=== PATIENT | male | born 1985 | race African-American/Black ===

== ENCOUNTER 2019-10-20 05:56 | Inpatient (IN) ==
[2019-10-20] MEDS ORDERED: diphenhydrAMINE 50 MG/1 ML VIAL IV STA (06:29)
[2019-10-20] MEDS ORDERED: HALOPERIDOL 5 MG/ML AMP IV STA (06:29)
[2019-10-20 07:04] LABS: Basophils # 0.1 10*3/uL (0.0-0.2); Eosinophils # 0.1 10*3/uL (0.0-0.87); Eosinophils % 1.4 % (0.00-10.9); Hematocrit 41.1 VOL% (42.0-52.0); Immature Granulocytes % 0.2 %; Immature Granulocytes Absolute 0.01 #; Lymphocytes # 2.1 10*3/uL (1.4-4.0); Lymphocytes % 44.1 % (21.2-54.2); Mean Corpuscular HGB Conc 31.6 GM/DL (32-36); Mean Corpuscular Volume 84.6 FL (87-102); Mean Platelet Volume 10.3 FL (9.6-12.0); Neutrophils % 48.3 % (38.7-73.9); Platelet Count 314 T/CUMM (130-400); Red Blood Count 4.86 MC/CUMM (3.8-5.5); Red Cell Distribution Width 15.3 % (9.3-17.3); White Blood Count 4.8 T/CUMM (4-12)
[2019-10-20 07:18] LABS: Barbiturates Screen,Urine Negative (Negative); Benzodiazepines Screen,Urine Negative (Negative); Cannabinoid Screen,Urine Positive (Negative); Opiate Screen,Urine Negative (Negative); Phencyclidine Screen,Urine Negative (Negative)
[2019-10-20 07:19] LABS: Alanine Aminotransferase 34 U/L (16-61); Albumin 3.7 G/DL (3.4-5.0); Alkaline Phosphatase 79 U/L (45-117); Aspartate Amino Transferase 25 U/L (0-37); Bilirubin,Total < 0.39 MG/DL (0.2-1.0); Blood Urea Nitrogen 9 MG/DL (7-18); Calcium 8.7 MG/DL (8.5-10.1); Estimated Glom Filtration Rate 121 ML/MIN; Glucose 100 MG/DL (74-106); Osmolality,Calculated 281.1 MOS/KG (273-304); Total Protein 8.2 G/DL (6.4-8.3)
[2019-10-20] MEDS ORDERED: LORazepam 2 MG/1 ML VIAL IV PRN (14:37)
[2019-10-20] MEDS ORDERED: THIAMINE INJ 100 MG, FOLIC ACID INJ 1 MG, MULTIVITAMIN INJ 10 ML in SODIUM CHLORIDE 0.9... IV ONE (15:30)
[2019-10-21] MEDS: SODIUM CHLORIDE 0.9% 1,000 ML IV SCH ×3 (03:44→11:35)
[2019-10-21 06:26] LABS: Basophils % 0.8 % (0.0-0.8); Eosinophils # 0.1 10*3/uL (0.0-0.87); Eosinophils % 2.3 % (0.00-10.9); Hematocrit 36.1 VOL% (42.0-52.0); Hemoglobin 11.5 GM/DL (14.0-18.0); Immature Granulocytes % 0.2 %; Immature Granulocytes Absolute 0.01 #; Lymphocytes # 2.5 10*3/uL (1.4-4.0); Lymphocytes % 52.7 % (21.2-54.2); Mean Corpuscular HGB Conc 31.9 GM/DL (32-36); Mean Corpuscular Volume 84.7 FL (87-102); Mean Platelet Volume 10.7 FL (9.6-12.0); Monocytes % 5.9 % (1.7-12.7); Neutrophils % 38.1 % (38.7-73.9); Platelet Count 241 T/CUMM (130-400); Red Blood Count 4.26 MC/CUMM (3.8-5.5); Red Cell Distribution Width 15.4 % (9.3-17.3); White Blood Count 4.8 T/CUMM (4-12)
[2019-10-21 06:49] LABS: Calcium 8.4 MG/DL (8.5-10.1); Osmolality,Calculated 276.4 MOS/KG (273-304)
[2019-10-21 06:55] LABS: Eosinophils 4 % (0-10); Hypochromasia 1+; Lymphocytes 49 % (20-55); Ovalocytes Slight; Platelet Estimate Adequate; Segmented Neutrophils 39 % (50-85); Total Cells Counted 100
[2019-10-21] MEDS ORDERED: HALOPERIDOL 5 MG TABLET PO SCH (09:00)
[2019-10-21 11:24] VITALS: BP 134/72
== END 2019-10-21 16:13 | disposition home or self-care (01) | DRG 885 ==
LOC: EDUNIT# → EDBD → N.ED 05:56 → N.EDINP 14:32 → N.3E 16:07
PROVIDERS: ADMIT Internal Medicine; ATTEND Internal Medicine